=== PATIENT | male | born 1955 | race Caucasian/White ===

== ENCOUNTER → 2024-01-16 10:06 | Outpatient (REF) | payer MEDICARE, SELFPAY ==
[2024-01-16 11:26] LABS: AST (SGOT) 32 U/L (17-59); Albumin 4.1 g/dl (3.5-5.0); Alkaline Phosphatase 54 U/L (38-126); Blood Urea Nitrogen 20 mg/dl (9-20); Calcium 9.6 mg/dl (8.4-10.2); Carbon Dioxide 26 mmol/L (22-30); Chloride 104 mmol/L (98-107); Glucose 98 mg/dl (70-99); HDL Cholesterol 61 mg/dl; LDL Cholesterol, Calculated 30 mg/dl; Potassium 4.3 mmol/L (3.5-5.1); Sodium 141 mmol/L (135-145); Total Bilirubin 0.9 mg/dl (0.2-1.3); Total Cholesterol 100 mg/dl (50-199); Total Protein 6.9 g/dl (6.3-8.2); Triglyceride 49 mg/dl (10-149); Very Low Density Lipoprotein 9 mg/dl (0-30); eGFR > 60.00
[2024-01-16 11:34] LABS: ALT (SGPT) 28 U/L (0-50)
[2024-01-16 11:55] LABS: TSH Reflex To Free T4 2.08 uIU/ml (0.47-4.68)
== END ==
LOC: REG 10:06
PROVIDERS: ATTENDING PHYSICIAN Internal Medicine Cardiovascular Disease; FAMILY PHYSICIAN Family Medicine
DX: E78.2 Mixed hyperlipidemia (principal)
CPT/HCPCS: 36415; 80053; 80061; 84443

== ENCOUNTER 2024-02-01 19:03 | Emergency (ER) | payer MEDICARE, SELFPAY ==
[2024-02-01 19:04] VITALS: BP 183/110
--- NOTE | 2024-02-01 19:39 | ED.GENMED ---
History of Present Illness
General
Chief Complaint: Chest Pain
Time Seen by Provider: 02/01/24 19:14
Travel History
Have you had any contact with someone who has COVID-19?: No
Do you have any symptoms of coronavirus? Fever > 100 degrees, chills, cough, shortness of breath, sore throat, loss of taste or smell, muscle aches, or headache?: No
History of Present Illness
History of Present Illness:
68yoM hx CAD with multiple stents presenting with high heart rate during exercise today. Patient states that every day he exercises for 2 hours. Patient states that today after working out for 2 hours including running, elliptical, and stationary
bike he was reviewing his heart rate on his watch and noticed that well on his stationary bike at the end of his workout his heart rate was noted to be in the 200s as high as 211. Patient denies chest pain, shortness of breath, dizziness,
palpitations, lightheadedness, or syncope at that time or currently. Patient noticed that he was hypertensive and his resting heart rate was higher than normal prompting ED evaluation. Patient states that he had noticed that his heart rate would
go up into the 180s - 190s while exercising for the past few months so he talked with his PCP and district associate judge who recommended to decrease exertion while working out as patient was asymptomatic during those times as well. Patient states last cardiac
catheterization was in May 2023, had stent placed in LAD and restented RCA. Patient denies any symptoms at this time.
Past History
Past History
ED Past Medical History: CAD
Phy Exam
Physical Exam
Physical Exam:
General: Alert, no acute distress. not diaphoretic
Head: NCAT
Eyes: clear conjunctiva
Neck: supple
Cardiac: regular rate and rhythm, no murmur
Lungs: clear to auscultation bilaterally. No wheezes, rales, or rhonchi. Speaking full unlabored sentences. No respiratory distress.
Abdomen: soft, nondistended nontender. No rebound or guarding.
MSK: no lower extremity edema bilaterally. No deformity
Skin: warm, dry
Neuro: Alert and oriented x3. no focal deficits
Scores
Heart Score for Chest Pain Patients
STEMI patient?: No
History: Slightly or Non-Suspicious
ECG: Normal
Age: >/= 65 years
Risk Factors: >/= 3 Risk Factors or History of CAD
Troponin: </= Normal Limit
Heart Score for Chest Pain Patients: 4
Heart Score Risk: 20.3% MACE over next 6 weeks
Course
Orders/Labs/Results
Orders:
Orders
02/01/24 19:06
EKG [Electrocardiogram (*1)] Stat
Reason for Study: Chest Pain
EKG- Treatment ONCE
02/01/24 20:21
CBC/With Diff [Complete Blood Count/With Diff] Urgent
CMP [Comprehensive Metabolic Panel] Urgent
PT/INR [Prothrombin Time] Urgent
TSH Reflex To Free T4 Urgent
Troponin I Urgent
Abnormal Lab Results
02/01/24
20:21
RBC 4.56 L 10^6/uL
(4.70-6.10)
MCH 32.0 H pg
(27.0-31.0)
Absolute Monos (auto) 0.8 H 10^3/uL
(0.1-0.6)
Lymphocytes % 19.8 L %
(20.5-51.1)
Monocytes % 10.4 H %
(1.7-9.3)
BUN 26 H mg/dl
(9-20)
Glucose 103 H mg/dl
(70-99)
02/01/24 20:21
02/01/24 20:21
Vital Signs
Initial and Last Documented VS:
Initial Vital Signs
Temp Pulse Resp BP Pulse Ox
98.2 F 92 16 183/110 98
02/01/24 19:04 02/01/24 19:04 02/01/24 19:04 02/01/24 19:04 02/01/24 19:04
Last Documented Vital Signs
Temp Pulse Resp BP Pulse Ox
98.2 F 75 18 183/110 98
02/01/24 19:04 02/01/24 21:15 02/01/24 21:15 02/01/24 19:04 02/01/24 19:04
MDM/Problems Addressed
MDM/Problems Addressed:
Patient presents to the Emergency Department with ___tachycardia while exercising today
Number and Complexity of Problems Addressed at the Encounter
� Chronic conditions affecting care:
� Acute Exacerbation and/or Progression of Chronic Illness:
� Differential Diagnosis includes: arrhythmia, NSTEMI, hyperthyroidism, electrolyte abnormality, normal physiological response to exercise
Amount and/or Complexity of Data to be Reviewed and Analyzed
� I performed an independent evaluation of and my interpretation is:
EKG: NSR at 87bpm with ID [id number] QTc 450 no acute ischemic changes
CT:
Xrays:
Laboratory Studies: no anemia. electrolytes/thyroid/troponin within normal limits
Other:
� Review of other/old records reveals:
� Clinical information was obtained by an independent historian:
� Prescriptions/Medications Considered but not given:
� Further testing considered but not performed:
Risk of Complications and/or Morbidity or Mortality of Patient Management
� Social Determinants of health affecting care:
� Discussion with other providers (PCP, Hospitalists, Consultants, etc):
� Escalation of care including admission/observation vs risk of discharge considered:68yoM hx CAD presenting with tachycardia while exercising today. Patient states he was reviewing his watch which takes his heart rate continuously after exercising
and noticed his heart rate was in 200s while doing stationary bike. Patient denies any chest pain, shortness of breath, dizziness, palpitations, lightheadedness, or excessive diaphoresis while exercising. Patient denies any symptoms currently.
Reviewed EKG that patient took on watch after exercising, normal sinus rhythm with HR in 90s, narrow QRS complex. Given cardiac history, will obtain cardiac workup. Workup reviewed, electrolytes/troponin/hemoglobin/tsh within normal limits. Patient
continues to be asymptomatic in ER. Vitals stable. Discussed results with patient at bedside. Will discharge with cardiology follow up
*Critical Care Note
Total Time (30-74mins, 75-104mins- exclusive of procedures): Not Applicable
ED Attending Note
-
Portions of this chart may have been created with voice recognition software.� Occasional wrong word or��sound alike� substitutions may have occurred due to the inherent limitations of voice recognition software.
Discharge Plan
Departure
Patient Disposition: Home (Routine Discharge)
Date of Disposition: 02/01/24
Time of Disposition: 21:59
Patient with high blood pressure during this ER visit?: Yes
Discharge Problem:
Tachycardia
Instructions: Chest Pain DCA Follow Up, BLOOD PRESSURE
Referrals:
Keanu Shaw MD [Active] -
Mark Major MD [Family Provider] -
Activity Restrictions/Additional Instructions:
Follow up with cardiology in 2-3 days
Return to the emergency department for chest pain, shortness of breath, dizziness, or new/worsening symptoms
Interventions
Interventions:
*Risk Screen - Suicide Last Done: 02/01/24 19:04
*General Assessment Last Done: 02/01/24 19:04
*Neglect/Abuse Screening Last Done: 02/01/24 19:04
ED- Fall Risk Assessment Last Done: 02/01/24 19:06
*ED COVID-19 Vaccine History Last Done: 02/01/24 19:06
ED- Cardiac Assessment Last Done: 02/01/24 19:06
Discharge Date and Time
Print Language: ISRAELI
[2024-02-01 20:25] LABS: % Basophils 0.7 % (0-2); % Eosinophils 2.1 % (0-6); % Immature Granulocytes 0.1 % (0-0.5); % Lymphocytes 19.8 % (20.5-51.1); % Monocytes 10.4 % (1.7-9.3); % Neutrophils 66.9 % (42.2-75.2); Absolute Basophils 0.1 10^3/uL (0-0.2); Absolute Eosinophils 0.2 10^3/uL (0-0.7); Absolute Lymphocytes 1.5 10^3/uL (1.2-3.4); Absolute Monocytes 0.8 10^3/uL (0.1-0.6); Hematocrit 41.2 % (39.0-52.0); Hemoglobin 14.6 g/dL (13.0-18.0); Mean Corp Hgb Conc. 35.4 g/dL (33.0-37.0); Mean Corpuscular Volume 90.4 fL (80.0-94.0); Nucleated Red Blood Cells % 0 % (-); Platelet Count 246 10^3/uL (130-400); Red Blood Cell Count 4.56 10^6/uL (4.70-6.10); Red Cell Dist. Width 12.6 % (11.5-14.5); White Blood Cell Count 7.5 10^3/uL (4.8-10.8)
[2024-02-01 20:35] LABS: INR 1.09; PT 13.9 Sec (11.4-14.6)
[2024-02-01 20:39] LABS: ALT (SGPT) 28 U/L (0-50); AST (SGOT) 33 U/L (17-59); Alkaline Phosphatase 59 U/L (38-126); Blood Urea Nitrogen 26 mg/dl (9-20); Calcium 9.4 mg/dl (8.4-10.2); Carbon Dioxide 26 mmol/L (22-30); Chloride 107 mmol/L (98-107); Glucose 103 mg/dl (70-99); Potassium 4.2 mmol/L (3.5-5.1); Sodium 138 mmol/L (135-145); Total Bilirubin 0.6 mg/dl (0.2-1.3); Total Protein 6.6 g/dl (6.3-8.2); eGFR > 60.00
[2024-02-01 20:51] LABS: Troponin I < 0.012 ng/ml
[2024-02-01 21:09] LABS: TSH Reflex To Free T4 2.64 uIU/ml (0.47-4.68)
[2024-02-01 22:15] VITALS: BP 152/83
== END 2024-02-01 23:13 | disposition home or self-care (01) ==
LOC: EMR 19:03
PROVIDERS: EMERGENCY PHYSICIAN Emergency Medicine; FAMILY PHYSICIAN Family Medicine
DX: R00.0 Tachycardia, unspecified (principal); R03.0 Elevated blood-pressure reading, without diagnosis of hypertension; I25.10 Atherosclerotic heart disease of native coronary artery without angina pectoris; Z95.5 Presence of coronary angioplasty implant and graft
CPT/HCPCS: 99283; 80053; 84443; 84484; 85025; 85610; 93005

== ENCOUNTER → 2024-07-28 07:19 | Outpatient (REF) | payer MEDICARE, SELFPAY ==
[2024-07-28 08:43] LABS: ALT (SGPT) 31 U/L (0-50); AST (SGOT) 37 U/L (17-59); Albumin 4.3 g/dl (3.5-5.0); Alkaline Phosphatase 46 U/L (38-126); Blood Urea Nitrogen 20 mg/dl (9-20); Calcium 9.1 mg/dl (8.4-10.2); Carbon Dioxide 28 mmol/L (22-30); Chloride 105 mmol/L (98-107); Glucose 93 mg/dl (70-99); HDL Cholesterol 50 mg/dl; LDL Cholesterol, Calculated 50 mg/dl; Potassium 4.7 mmol/L (3.5-5.1); Sodium 144 mmol/L (135-145); Total Bilirubin 0.8 mg/dl (0.2-1.3); Total Cholesterol 109 mg/dl (50-199); Total Protein 7.1 g/dl (6.3-8.2); Triglyceride 46 mg/dl (10-149); Very Low Density Lipoprotein 9 mg/dl (0-30); eGFR > 60.00
[2024-07-28 09:11] LABS: PSA, Total - Diagnostic 0.64 ng/ml (0.0-4.0)
== END ==
LOC: REG 07:19
PROVIDERS: ATTENDING PHYSICIAN Urology; FAMILY PHYSICIAN Family Medicine; REFERRING PHYSICIAN Physician Assistant Medical
DX: N40.1 Benign prostatic hyperplasia with lower urinary tract symptoms (principal); I10 Essential (primary) hypertension; I25.10 Atherosclerotic heart disease of native coronary artery without angina pectoris; E78.2 Mixed hyperlipidemia
CPT/HCPCS: 36415; 80053; 80061; 84153

== ENCOUNTER 2025-06-02 06:14 | Day surgery (SDC) | payer MEDICARE, SELFPAY | END 2025-06-02 12:06 | disposition home or self-care (01) | LOC: GI 06:14 | PROVIDERS: ATTENDING PHYSICIAN Internal Medicine Gastroenterology; FAMILY PHYSICIAN Family Medicine | DX: Z12.11 Encounter for screening for malignant neoplasm of colon (principal); R19.4 Change in bowel habit; K64.8 Other hemorrhoids; K57.30 Diverticulosis of large intestine without perforation or abscess without bleeding; K44.9 Diaphragmatic hernia without obstruction or gangrene; K22.89 Other specified disease of esophagus; K29.70 Gastritis, unspecified, without bleeding; D12.4 Benign neoplasm of descending colon; Z86.0100 Personal history of colon polyps, unspecified; Z87.11 Personal history of peptic ulcer disease | CPT/HCPCS: 45385; 45380; 43239; 88305; 88342 ==

== ENCOUNTER → 2025-07-26 08:08 | Outpatient (REF) | payer MEDICARE, SELFPAY ==
[2025-07-26 10:42] LABS: ALT (SGPT) 32 U/L (0-50); AST (SGOT) 35 U/L (17-59); Albumin 4.3 g/dl (3.5-5.0); Alkaline Phosphatase 44 U/L (38-126); Blood Urea Nitrogen 21 mg/dl (9-20); Calcium 9.2 mg/dl (8.4-10.2); Carbon Dioxide 30 mmol/L (22-30); Chloride 106 mmol/L (98-107); Glucose 96 mg/dl (70-99); HDL Cholesterol 48 mg/dl; LDL Cholesterol, Calculated 58 mg/dl; Potassium 4.3 mmol/L (3.5-5.1); Sodium 140 mmol/L (135-145); Total Protein 7.2 g/dl (6.3-8.2); Very Low Density Lipoprotein 9 mg/dl (0-30); eGFR > 60.00
== END ==
LOC: REG 08:08
PROVIDERS: ATTENDING PHYSICIAN Physician Assistant Medical
DX: I25.10 Atherosclerotic heart disease of native coronary artery without angina pectoris (principal); E78.2 Mixed hyperlipidemia; N40.1 Benign prostatic hyperplasia with lower urinary tract symptoms
CPT/HCPCS: 36415; 80053; 80061